=== PATIENT | male | born 1945 | race African-American/Black ===

== ENCOUNTER → 2023-09-04 | Day surgery (SDC) | payer MEDICARE, BC ==
[~2023-09-04] VITALS: Ht 188 cm; Wt 95.3 kg
[~2023-09-04] MED LIST: ACETAMINOPHEN 325MG TABLET PO PRN; ASCO500C18 PO; ASPIRIN/SOD BICARB/CITRIC ACID 324MG TAB EFF ONE; ATROPINE SULFATE 1MG/10ML SYR IV PRN; AZIL40TA PO; BETA1TAB21 PO; BRIM5DRO6 BOTHEYE; CALC-1139 PO; CHOL200026 PO; CYAN50009 SL; FAMO40TA7 PO; FENTANYL CITRATE/PF 50MCG/ML 2ML VIAL ONE; HEPARIN 1000 UNITS/ML 10ML ONE; IODIXANOL 320MG/ML 100 ML BOTTLE IV ONE; LIDO35.421 TP; LIDOCAINE HCL 1% 10 MG/ML 10ML VIAL ONE; METO25TA6 PO; MIDAZOLAM HCL 2 MG/2 ML VIAL ONE; MORPHINE SULFATE 2 MG/ML CPJ (NOT FOR IM USE) IV PRN; NALOXONE HCL 0.4MG/ML VIAL IV PRN; OMEG100017 PO; ONDANSETRON HCL 4MG/2ML INJ IV PRN; ROSU40TA PO; TUMERIC PO
[2023-09-04 11:46] LABS: HEMATOCRIT 39.5 % (42.0-52.0); MEAN CORPUSCULAR HEMOGLOBIN 29.2 pg (28.0-32.0); MEAN CORPUSCULAR HGB CONC 32.9 g/dL (31.0-37.0); MEAN CORPUSCULAR VOLUME 88.6 fL (80.0-94.0); PLATELET 98 x1000/uL (130-400); RED BLOOD CELL COUNT 4.46 mill/uL (4.7-6.1); RED CELL DISTRIBUTION WIDTH 14.1 % (11.6-14.6); WHITE BLOOD COUNT 6.9 x1000/uL (4.5-11.0)
[2023-09-04 11:59] LABS: POTASSIUM 4.7 mEq/L (3.5-5.1)
[2023-09-04 12:05] LABS: CREATININE 1.8 mg/dL (0.6-1.3)
== END | disposition home or self-care (01) ==
LOC: EEVIPCON 08:00 → CCL 11:10
PROVIDERS: ATTEND Specialist
DX: I25.10 Atherosclerotic heart disease of native coronary artery without angina pectoris (principal); I10 Essential (primary) hypertension; Z79.899 Other long term (current) drug therapy; Z98.890 Other specified postprocedural states
CPT/HCPCS: 80048; 85027; 36415; 93458; C1893; C1725; C1769 ×2; J3010; Q9967; J1644 ×2; J3490; J2250; Z7610 ×7; C1887; 99152; G0500